=== PATIENT | male | born 1980 | race Caucasian/White ===

== ENCOUNTER 2018-02-07 09:57 | Emergency (ER) | payer MEDICAID ==
[~2018-02-07] VITALS: Ht 175.3 cm; Wt 102.3 kg
[~2018-02-07 09:57] MED LIST: ALPR-624 PO; CYCL-1 PO; HYDR1TAB PO; METO50TA16 PO; TEST200V16 IM
[2018-02-07 10:39] LABS: BASOPHILS % (AUTO) 0.4 % (0-1); EOSINOPHILS # (AUTO) 0.4 X10'3 (0-0.9); HEMATOCRIT 42.9 % (42.0-52.0); HEMOGLOBIN 14.1 g/dl (14.0-17.9); LYMPHOCYTES # (AUTO) 1.1 X10'3 (1.1-4.8); LYMPHOCYTES % (AUTO) 20.6 % (21-51); MEAN CORPUSCULAR HEMOGLOBIN 26.9 PG (27.0-31.0); MEAN CORPUSCULAR HGB CONC 32.8 % (33.0-36.5); MEAN CORPUSCULAR VOLUME 82.2 FL (78-98); MEAN PLATELET VOLUME 7.9 FL (7.4-10.4); MONOCYTES # (AUTO) 0.6 X10'3 (0-0.9); MONOCYTES % (AUTO) 11.3 % (2-12); NEUTROPHILS # (AUTO) 3.3 X10'3 (1.8-7.7); NEUTROPHILS % (AUTO) 59.7 % (42-75); PLATELET COUNT 218 X10'3 (140-440); RED BLOOD COUNT 5.22 X10'6 (4.70-6.10); WHITE BLOOD COUNT 5.4 X10'3 (4.5-11.0)
[2018-02-07 10:49] LABS: PARTIAL THROMBOPLASTIN TIME 27 SECONDS (22-32); PROTHROMBIN TIME 10.6 SECONDS (9.0-12.0)
[2018-02-07 10:59] LABS: ANION GAP 4 (8-16); BLOOD UREA NITROGEN 12 MG/DL (7-18); CHLORIDE 103 MMOL/L (99-107); CREATININE 1.23 MG/DL (0.60-1.10); GLUCOSE 96 MG/DL (70-104); POTASSIUM 3.9 MMOL/L (3.5-5.1); SODIUM 138 MMOL/L (135-145)
[2018-02-07 11:00] LABS: ALANINE AMINOTRANSFERASE 35 U/L (12-78); ALBUMIN 3.4 G/DL (3.4-5.0); ALKALINE PHOSPHATASE 45 IU/L (46-116); ASPARTATE AMINO TRANSFERASE 26 U/L (10-37); BILIRUBIN,TOTAL 0.3 MG/DL (0.1-1.0); BUN/CREATININE RATIO 9.8 (5.4-32.0); CALCIUM 8.3 MG/DL (8.5-10.1); TOTAL PROTEIN 6.9 G/DL (6.4-8.2); eGFR 66 ML/MIN
[2018-02-07 11:33] VITALS: BP 131/88
[2018-02-07] MEDS ORDERED: IBUP-1984 PO (11:39)
== END 2018-02-07 12:05 | disposition home or self-care (01) ==
LOC: ER 09:58
DX: M94.0 Chondrocostal junction syndrome [Tietze] (principal); I10 Essential (primary) hypertension; K21.9 Gastro-esophageal reflux disease without esophagitis; Z88.2 Allergy status to sulfonamides
CPT/HCPCS: 36415; 71046; 80053; 84484; 85025; 85610; 85730; 93005; 99285

== ENCOUNTER 2018-07-13 22:21 | Emergency (ER) | payer MEDICAID ==
[~2018-07-13] VITALS: Ht 177.8 cm; Wt 104.5 kg
[2018-07-13 23:05] VITALS: BP 130/78
[2018-07-13 23:14] LABS: BASOPHILS % (AUTO) 0.3 % (0-1); EOSINOPHILS # (AUTO) 0.4 X10'3 (0-0.9); EOSINOPHILS % (AUTO) 7.3 % (0-6); HEMATOCRIT 47.9 % (42.0-52.0); HEMOGLOBIN 15.6 g/dl (14.0-17.9); LYMPHOCYTES # (AUTO) 1.4 X10'3 (1.1-4.8); LYMPHOCYTES % (AUTO) 23.2 % (21-51); MEAN CORPUSCULAR HEMOGLOBIN 26.6 PG (27.0-31.0); MEAN CORPUSCULAR HGB CONC 32.7 % (33.0-36.5); MEAN CORPUSCULAR VOLUME 81.6 FL (78-98); MEAN PLATELET VOLUME 8.6 FL (7.4-10.4); MONOCYTES # (AUTO) 0.7 X10'3 (0-0.9); MONOCYTES % (AUTO) 12.4 % (2-12); NEUTROPHILS # (AUTO) 3.3 X10'3 (1.8-7.7); NEUTROPHILS % (AUTO) 56.8 % (42-75); PLATELET COUNT 213 X10'3 (140-440); RED BLOOD COUNT 5.87 X10'6 (4.70-6.10); RED CELL DISTRIBUTION WIDTH 15.2 % (11.5-14.5); WHITE BLOOD COUNT 5.9 X10'3 (4.5-11.0)
[2018-07-13 23:34] LABS: ALANINE AMINOTRANSFERASE 48 U/L (12-78); ALBUMIN 3.5 G/DL (3.4-5.0); ALKALINE PHOSPHATASE 51 IU/L (46-116); ANION GAP 8 (8-16); ASPARTATE AMINO TRANSFERASE 41 U/L (10-37); BILIRUBIN,TOTAL 0.3 MG/DL (0.1-1.0); BLOOD UREA NITROGEN 17 MG/DL (7-18); BUN/CREATININE RATIO 12.6 (5.4-32.0); CALCIUM 8.2 MG/DL (8.5-10.1); CHLORIDE 102 MMOL/L (99-107); CREATININE 1.35 MG/DL (0.60-1.10); GLUCOSE 91 MG/DL (70-104); LIPASE 197 U/L (73-393); POTASSIUM 3.8 MMOL/L (3.5-5.1); SODIUM 140 MMOL/L (135-145); TOTAL CARBON DIOXIDE 30.4 MMOL/L (24-32); TOTAL PROTEIN 7.1 G/DL (6.4-8.2); eGFR 59 ML/MIN
[2018-07-13 23:43] LABS: CLARITY,URINE CLEAR (Clear); COLOR,URINE YELLOW (Yellow); GLUCOSE, URINE NEGATIVE (Neg); KETONES,URINE NEGATIVE (Neg); LEUKOCYTE ESTERASE ,URINE NEGATIVE (Neg); NITRITES, URINE NEGATIVE (Neg); OCCULT BLOOD,URINE NEGATIVE (Neg); PH,URINE 5.5 (4.8-8.0); PROTEIN,URINE NEGATIVE (Neg); UA COLLECTION TYPE VOIDED; UROBILINOGEN,URINE 0.2 E.U/dL (0.2-1.0)
[2018-07-13] MEDS ORDERED: OMEP40CA37 PO (23:59)
== END 2018-07-14 00:14 | disposition home or self-care (01) ==
LOC: ER 22:22
DX: R10.9 Unspecified abdominal pain (principal); R14.0 Abdominal distension (gaseous); R11.10 Vomiting, unspecified; R53.83 Other fatigue
CPT/HCPCS: 36415; 80053; 81003; 83690; 85025; 99284

== ENCOUNTER 2018-08-01 15:28 | Emergency (ER) | payer MEDICAID ==
[~2018-08-01] VITALS: Ht 177.8 cm; Wt 102.0 kg
[~2018-08-01 15:28] MED LIST changes: +OMEP40CA37 PO
[2018-08-01 16:02] LABS: BASOPHILS % (AUTO) 0.3 % (0-1); EOSINOPHILS # (AUTO) 0.3 X10'3 (0-0.9); HEMATOCRIT 49.9 % (42.0-52.0); LYMPHOCYTES # (AUTO) 1.1 X10'3 (1.1-4.8); LYMPHOCYTES % (AUTO) 22.7 % (21-51); MEAN CORPUSCULAR HEMOGLOBIN 26.1 PG (27.0-31.0); MEAN CORPUSCULAR HGB CONC 32.1 % (33.0-36.5); MEAN CORPUSCULAR VOLUME 81.3 FL (78-98); MEAN PLATELET VOLUME 8.1 FL (7.4-10.4); MONOCYTES # (AUTO) 0.7 X10'3 (0-0.9); MONOCYTES % (AUTO) 14.3 % (2-12); NEUTROPHILS # (AUTO) 2.8 X10'3 (1.8-7.7); NEUTROPHILS % (AUTO) 55.7 % (42-75); PLATELET COUNT 222 X10'3 (140-440); RED BLOOD COUNT 6.14 X10'6 (4.70-6.10); RED CELL DISTRIBUTION WIDTH 15.4 % (11.5-14.5)
[2018-08-01] MEDS ORDERED: ondansetron 4mg rapidly disintigrating tab PO ONE (16:15)
[2018-08-01 16:17] LABS: ALANINE AMINOTRANSFERASE 47 U/L (12-78); ALBUMIN 3.8 G/DL (3.4-5.0); ALKALINE PHOSPHATASE 52 IU/L (46-116); ANION GAP 7 (8-16); ASPARTATE AMINO TRANSFERASE 43 U/L (10-37); BILIRUBIN,TOTAL 0.5 MG/DL (0.1-1.0); BLOOD UREA NITROGEN 14 MG/DL (7-18); BUN/CREATININE RATIO 10.4 (5.4-32.0); CALCIUM 8.7 MG/DL (8.5-10.1); CHLORIDE 101 MMOL/L (99-107); CREATININE 1.34 MG/DL (0.60-1.10); GLUCOSE 86 MG/DL (70-104); LIPASE 192 U/L (73-393); POTASSIUM 4.3 MMOL/L (3.5-5.1); SODIUM 139 MMOL/L (135-145); TOTAL CARBON DIOXIDE 31.1 MMOL/L (24-32); TOTAL PROTEIN 7.7 G/DL (6.4-8.2); eGFR 60 ML/MIN
[2018-08-01] MEDS ORDERED: PYRA144O PO (16:27)
[2018-08-01] MEDS ORDERED: PRAZ600T3 PO (16:27)
[2018-08-01] MEDS ORDERED: ONDA8TAB9 PO (16:29)
[2018-08-01 16:31] LABS: INR 1.1 INR
[2018-08-01 16:42] VITALS: BP 129/77
== END 2018-08-01 16:44 | disposition home or self-care (01) ==
LOC: ER 15:29
DX: B82.9 Intestinal parasitism, unspecified (principal); I10 Essential (primary) hypertension; K21.9 Gastro-esophageal reflux disease without esophagitis; Z98.890 Other specified postprocedural states; Z88.2 Allergy status to sulfonamides; Z88.1 Allergy status to other antibiotic agents; Z79.899 Other long term (current) drug therapy
CPT/HCPCS: 36415; 80053; 83690; 85025; 85610; 99284

== ENCOUNTER 2019-04-16 01:02 | Emergency (ER) | payer MEDICAID ==
[~2019-04-16] VITALS: Ht 175.3 cm; Wt 104.0 kg
[~2019-04-16 01:02] MED LIST changes: -OMEP40CA37 PO; +ONDA8TAB9 PO; +PRAZ600T3 PO; +PYRA144O PO
[2019-04-16 02:10] VITALS: BP 145/76
--- NOTE | 2019-04-16 03:34 | NUR ---
Pt not in room. Per Registration, pt signed all relevant documents prior to leaving. EDMD and CRN notified pt left prior to being seen.
== END 2019-04-16 03:37 | disposition left against medical advice (07) ==
LOC: ER 01:03
DX: K08.89 Other specified disorders of teeth and supporting structures (principal); Z53.21 Procedure and treatment not carried out due to patient leaving prior to being seen by health care provider; Z79.899 Other long term (current) drug therapy

== ENCOUNTER 2019-04-16 05:24 | Emergency (ER) | payer MEDICAID ==
[~2019-04-16] VITALS: Ht 175.3 cm; Wt 105.0 kg
[2019-04-16 05:28] VITALS: BP 158/99
[2019-04-16] MEDS ORDERED: ondansetron 4mg rapidly disintigrating tab PO ONE (06:25)
[2019-04-16] MEDS ORDERED: LIDOcaine Viscous 15ml cup PO ONE (06:35)
== END 2019-04-16 06:59 | disposition home or self-care (01) ==
LOC: ER 05:25
DX: K08.89 Other specified disorders of teeth and supporting structures (principal); I10 Essential (primary) hypertension; K21.9 Gastro-esophageal reflux disease without esophagitis; F10.99 Alcohol use, unspecified with unspecified alcohol-induced disorder; Z98.890 Other specified postprocedural states; Z88.2 Allergy status to sulfonamides; Z88.8 Allergy status to other drugs, medicaments and biological substances; Z79.899 Other long term (current) drug therapy; Y90.9 Presence of alcohol in blood, level not specified
CPT/HCPCS: 99283; J2405

== ENCOUNTER 2020-04-21 21:47 | Emergency (ER) | payer MEDICAID ==
[~2020-04-21] VITALS: Ht 175.3 cm; Wt 102.0 kg
--- NOTE | 2020-04-21 21:58 | NUR ---
RANJAN WALKER [phone] ALY
[2020-04-21] MEDS ORDERED: aspirin 81mg tab.chew PO ONE (22:05)
[2020-04-21 22:45] LABS: BASOPHILS % (AUTO) 0.6 % (0-1); EOSINOPHILS # (AUTO) 0.4 X10'3 (0-0.9); EOSINOPHILS % (AUTO) 8.1 % (0-6); HEMOGLOBIN 17.3 g/dl (14.0-17.9); LYMPHOCYTES # (AUTO) 1.2 X10'3 (1.1-4.8); MEAN CORPUSCULAR HEMOGLOBIN 31.4 PG (27.0-31.0); MEAN CORPUSCULAR VOLUME 92.3 FL (78-98); MONOCYTES # (AUTO) 0.6 X10'3 (0-0.9); NEUTROPHILS % (AUTO) 56.3 % (42-75); PLATELET COUNT 182 X10'3 (140-440); RED BLOOD COUNT 5.53 X10'6 (4.70-6.10); RED CELL DISTRIBUTION WIDTH 14.5 % (11.5-14.5); WHITE BLOOD COUNT 5.3 X10'3 (4.5-11.0)
[2020-04-21 22:49] LABS: D-DIMER 0.29 MG/L FEU (0-0.50)
[2020-04-21 22:52] LABS: ALANINE AMINOTRANSFERASE 34 U/L (12-78); ALBUMIN 3.5 G/DL (3.4-5.0); ALKALINE PHOSPHATASE 42 IU/L (46-116); ANION GAP 5 (8-16); ASPARTATE AMINO TRANSFERASE 31 U/L (10-37); BILIRUBIN,TOTAL 0.3 MG/DL (0.1-1.0); BLOOD UREA NITROGEN 17 MG/DL (7-18); BUN/CREATININE RATIO 13.5 (5.4-32.0); CALCIUM 8.3 MG/DL (8.5-10.1); CHLORIDE 105 MMOL/L (99-107); CREATININE 1.26 MG/DL (0.60-1.10); GLUCOSE 117 MG/DL (70-104); POTASSIUM 3.8 MMOL/L (3.5-5.1); SODIUM 138 MMOL/L (135-145); TOTAL CARBON DIOXIDE 28.2 MMOL/L (24-32); eGFR 64 ML/MIN
[2020-04-21 22:59] LABS: MAGNESIUM 1.6 MG/DL (1.5-2.4)
[2020-04-21 23:00] LABS: CLARITY,URINE CLEAR (Clear); COLOR,URINE YELLOW (Yellow); GLUCOSE, URINE NEGATIVE (Neg); KETONES,URINE NEGATIVE (Neg); LEUKOCYTE ESTERASE ,URINE NEGATIVE (Neg); NITRITES, URINE NEGATIVE (Neg); OCCULT BLOOD,URINE NEGATIVE (Neg); PROTEIN,URINE NEGATIVE (Neg); UROBILINOGEN,URINE 0.2 E.U/dL (0.2-1.0)
[2020-04-21 23:03] LABS: UA COLLECTION TYPE VOIDED
[2020-04-22 00:04] VITALS: BP 127/73
== END 2020-04-22 00:15 | disposition home or self-care (01) ==
LOC: ER 21:48
DX: I10 Essential (primary) hypertension (principal); R07.89 Other chest pain; H53.8 Other visual disturbances; R20.0 Anesthesia of skin; K21.9 Gastro-esophageal reflux disease without esophagitis; Z98.890 Other specified postprocedural states; Z72.89 Other problems related to lifestyle; Z88.2 Allergy status to sulfonamides; Z88.1 Allergy status to other antibiotic agents; Z88.8 Allergy status to other drugs, medicaments and biological substances; Z79.899 Other long term (current) drug therapy
CPT/HCPCS: 36415; 71045; 80053; 81003; 83735; 83880; 84484; 85025; 85379; 93005; 99285

== ENCOUNTER 2020-07-25 17:25 | Emergency (ER) | payer MEDICAID ==
[~2020-07-25] VITALS: Ht 175.3 cm; Wt 100.8 kg
[2020-07-25 17:31] VITALS: BP 133/68
[2020-07-25] MEDS ORDERED: CEPH250T PO (17:45)
[2020-07-25] MEDS ORDERED: DOXY100C76 PO (17:45)
== END 2020-07-25 18:01 | disposition home or self-care (01) ==
LOC: ER 17:26
DX: L03.113 Cellulitis of right upper limb (principal); I10 Essential (primary) hypertension; K21.9 Gastro-esophageal reflux disease without esophagitis; Z98.890 Other specified postprocedural states; Z72.89 Other problems related to lifestyle; Z88.2 Allergy status to sulfonamides; Z88.1 Allergy status to other antibiotic agents; Z88.8 Allergy status to other drugs, medicaments and biological substances; Z79.2 Long term (current) use of antibiotics; Z79.899 Other long term (current) drug therapy
CPT/HCPCS: 99283

== ENCOUNTER 2020-11-04 17:21 | Emergency (ER) | payer MEDICAID ==
[~2020-11-04] VITALS: Ht 175.3 cm; Wt 100.0 kg
[2020-11-04 17:29] VITALS: BP 145/91
--- NOTE | 2020-11-04 17:55 | NUR ---
Went to update pt on plan of care. Pt no longer seated in ambulance bay cubicle. PA made aware.
--- NOTE | 2020-11-04 18:02 | NUR ---
OUT TO ROOM PT TO BED 13 FROM [facility] PT NOT THERE. TENNILLE SUTTON NOTIFIED
== END 2020-11-04 19:12 | disposition left against medical advice (07) ==
LOC: ER 17:21
DX: B34.9 Viral infection, unspecified (principal); I10 Essential (primary) hypertension; K21.9 Gastro-esophageal reflux disease without esophagitis; Z79.899 Other long term (current) drug therapy; Z88.2 Allergy status to sulfonamides; Z88.8 Allergy status to other drugs, medicaments and biological substances
CPT/HCPCS: 99281

== ENCOUNTER 2021-05-11 00:02 | Emergency (ER) | payer MEDICAID ==
[~2021-05-11] VITALS: Ht 175.3 cm; Wt 97.3 kg
[2021-05-11 00:16] VITALS: BP 159/69
== END 2021-05-11 02:50 | disposition left against medical advice (07) ==
LOC: ER 00:03
DX: J02.9 Acute pharyngitis, unspecified (principal); Z20.822 Contact with and (suspected) exposure to COVID-19; R05 Cough; Z53.21 Procedure and treatment not carried out due to patient leaving prior to being seen by health care provider
CPT/HCPCS: 87635; C9803

== ENCOUNTER 2021-05-16 13:11 | Emergency (ER) | payer MEDICAID ==
[~2021-05-16] VITALS: Ht 175.3 cm; Wt 95.0 kg
[2021-05-16 13:35] VITALS: BP 136/88
[2021-05-16] MEDS ORDERED: DEC4T PO (14:27)
[2021-05-16] MEDS ORDERED: AZIT250T2 PO (14:27)
== END 2021-05-16 15:20 | disposition home or self-care (01) ==
LOC: ER 13:11
DX: U07.1 COVID-19 (principal); R53.83 Other fatigue; J20.9 Acute bronchitis, unspecified; R50.9 Fever, unspecified; R05 Cough; R53.1 Weakness; I10 Essential (primary) hypertension; K21.9 Gastro-esophageal reflux disease without esophagitis; Z98.890 Other specified postprocedural states; Z72.89 Other problems related to lifestyle; Z88.2 Allergy status to sulfonamides; Z88.1 Allergy status to other antibiotic agents; Z88.8 Allergy status to other drugs, medicaments and biological substances; Z79.2 Long term (current) use of antibiotics; Z79.899 Other long term (current) drug therapy
CPT/HCPCS: 36415; 71045; 99284; U0003; U0005

== ENCOUNTER 2021-08-12 17:13 | Emergency (ER) | payer MEDICAID ==
[2021-08-13] MEDS ORDERED: AZIT-83 PO (01:20)
== END 2021-08-12 19:44 | disposition left against medical advice (07) ==
LOC: ER 17:13
DX: Z53.21 Procedure and treatment not carried out due to patient leaving prior to being seen by health care provider (principal)

== ENCOUNTER 2021-08-12 23:08 | Emergency (ER) | payer MEDICAID ==
[~2021-08-12] VITALS: Ht 175.3 cm; Wt 95.5 kg
[2021-08-12 23:29] VITALS: BP 148/82
--- NOTE | 2021-08-13 01:14 | NUR ---
refused covid swab
[2021-08-13] MEDS ORDERED: AZIT-83 PO (01:20)
== END 2021-08-13 02:05 | disposition home or self-care (01) ==
LOC: ER 23:09
DX: J20.9 Acute bronchitis, unspecified (principal); R05.9 Cough, unspecified; R07.89 Other chest pain; R06.02 Shortness of breath; I10 Essential (primary) hypertension; K21.9 Gastro-esophageal reflux disease without esophagitis; Z98.890 Other specified postprocedural states; Z72.89 Other problems related to lifestyle; Z88.2 Allergy status to sulfonamides; Z88.1 Allergy status to other antibiotic agents; Z88.8 Allergy status to other drugs, medicaments and biological substances; Z79.2 Long term (current) use of antibiotics; Z79.899 Other long term (current) drug therapy
CPT/HCPCS: 99283

== ENCOUNTER 2021-12-15 02:48 | Emergency (ER) | payer MEDICAID ==
[~2021-12-15] VITALS: Ht 175.3 cm; Wt 95.5 kg
[2021-12-15 03:39] LABS: BASOPHILS % (AUTO) 0.5 % (0-1); EOSINOPHILS # (AUTO) 0.4 X10'3 (0-0.9); EOSINOPHILS % (AUTO) 6.5 % (0-6); HEMATOCRIT 50.9 % (42.0-52.0); HEMOGLOBIN 17.3 g/dl (14.0-17.9); LYMPHOCYTES # (AUTO) 1.9 X10'3 (1.1-4.8); LYMPHOCYTES % (AUTO) 28.2 % (21-51); MEAN CORPUSCULAR HEMOGLOBIN 30.7 PG (27.0-31.0); MEAN CORPUSCULAR HGB CONC 33.9 g/dL (33.0-36.5); MEAN CORPUSCULAR VOLUME 90.5 FL (78-98); MONOCYTES # (AUTO) 0.8 X10'3 (0-0.9); MONOCYTES % (AUTO) 11.9 % (2-12); NEUTROPHILS # (AUTO) 3.5 X10'3 (1.8-7.7); NEUTROPHILS % (AUTO) 52.9 % (42-75); PLATELET COUNT 204 X10'3 (140-440); RED BLOOD COUNT 5.63 X10'6 (4.70-6.10); RED CELL DISTRIBUTION WIDTH 14.4 % (11.5-14.5); WHITE BLOOD COUNT 6.6 X10'3 (4.5-11.0)
[2021-12-15 03:53] LABS: ALANINE AMINOTRANSFERASE 33 U/L (12-78); ALBUMIN 3.8 G/DL (3.4-5.0); ALKALINE PHOSPHATASE 46 IU/L (46-116); ANION GAP 1 (8-16); ASPARTATE AMINO TRANSFERASE 40 U/L (10-37); BILIRUBIN,TOTAL 0.4 MG/DL (0.1-1.0); BLOOD UREA NITROGEN 17 MG/DL (7-18); BUN/CREATININE RATIO 14.8 (5.4-32.0); CALCIUM 8.4 MG/DL (8.5-10.1); CHLORIDE 105 MMOL/L (99-107); CREATININE 1.15 MG/DL (0.60-1.10); GLUCOSE 88 MG/DL (70-104); POTASSIUM 3.8 MMOL/L (3.5-5.1); SODIUM 138 MMOL/L (135-145); TOTAL PROTEIN 7.5 G/DL (6.4-8.2); eGFR 70 ML/MIN
[2021-12-15 09:00] VITALS: BP 116/74
== END 2021-12-15 09:00 | disposition home or self-care (01) ==
LOC: ER 02:49
DX: R07.9 Chest pain, unspecified (principal); R00.2 Palpitations; I11.9 Hypertensive heart disease without heart failure; K21.9 Gastro-esophageal reflux disease without esophagitis; Z88.2 Allergy status to sulfonamides; Z88.8 Allergy status to other drugs, medicaments and biological substances; Z79.899 Other long term (current) drug therapy
CPT/HCPCS: 36415; 71045; 80053; 83880; 84484; 85025; 93005; 99285

== ENCOUNTER 2024-01-04 17:17 | Emergency (ER) | payer MEDICAID ==
[~2024-01-04] VITALS: Ht 175.3 cm; Wt 101.1 kg
[2024-01-04 17:34] VITALS: BP 142/85; PULSE 60; RESP 16; TEMP 98.2; O2SAT 96
== END 2024-01-04 18:49 | disposition home or self-care (01) ==
LOC: ER 17:18
DX: S43.005A Unspecified dislocation of left shoulder joint, initial encounter (principal); S46.912A Strain of unspecified muscle, fascia and tendon at shoulder and upper arm level, left arm, initial encounter; M25.512 Pain in left shoulder; I10 Essential (primary) hypertension; Z72.89 Other problems related to lifestyle; Z98.890 Other specified postprocedural states; Z88.2 Allergy status to sulfonamides; Z88.8 Allergy status to other drugs, medicaments and biological substances; Z79.899 Other long term (current) drug therapy; W19.XXXA Unspecified fall, initial encounter; Y93.89 Activity, other specified; Y92.89 Other specified places as the place of occurrence of the external cause; Y99.8 Other external cause status
CPT/HCPCS: 73030; 99283; A4565

== ENCOUNTER 2025-01-13 14:41 | Emergency (ER) | payer MEDICAID ==
[~2025-01-13] VITALS: Ht 175.3 cm; Wt 101.8 kg
[2025-01-13 14:50] VITALS: BP 116/69; PULSE 64; RESP 18; TEMP 97.9; O2SAT 97
[2025-01-13 15:31] LABS: BASOPHILS % (AUTO) 0.7 % (0-1); EOSINOPHILS # (AUTO) 0.3 X10'3 (0-0.9); EOSINOPHILS % (AUTO) 6.8 % (0-6); HEMOGLOBIN 14.5 g/dl (14.0-17.9); LYMPHOCYTES # (AUTO) 1.2 X10'3 (1.1-4.8); LYMPHOCYTES % (AUTO) 27.5 % (21-51); MEAN CORPUSCULAR HEMOGLOBIN 25.5 PG (27.0-31.0); MEAN CORPUSCULAR VOLUME 77.4 FL (78-98); MEAN PLATELET VOLUME 7.8 FL (7.4-10.4); MONOCYTES # (AUTO) 0.6 X10'3 (0-0.9); MONOCYTES % (AUTO) 13.7 % (2-12); NEUTROPHILS # (AUTO) 2.3 X10'3 (1.8-7.7); NEUTROPHILS % (AUTO) 51.3 % (42-75); PLATELET COUNT 236 X10'3 (140-440); RED BLOOD COUNT 5.68 X10'6 (4.70-6.10); RED CELL DISTRIBUTION WIDTH 16.3 % (11.5-14.5); WHITE BLOOD COUNT 4.5 X10'3 (4.5-11.0)
[2025-01-13 15:57] LABS: ALANINE AMINOTRANSFERASE 36 U/L (12-78); ALBUMIN 3.4 G/DL (3.4-5.0); ALBUMIN/GLOBULIN RATIO 0.9 (1.1-1.5); ALKALINE PHOSPHATASE 47 IU/L (46-116); ANION GAP 7 (8-16); ASPARTATE AMINO TRANSFERASE 37 U/L (10-37); BILIRUBIN,TOTAL 0.6 MG/DL (0.1-1.0); BLOOD UREA NITROGEN 21 MG/DL (7-18); BUN/CREATININE RATIO 19.3 (10.0-20.0); CALCIUM 8.2 MG/DL (8.5-10.1); CHLORIDE 104 MMOL/L (99-107); CREATININE 1.09 MG/DL (0.60-1.10); GLUCOSE 97 MG/DL (70-104); POTASSIUM 4.2 MMOL/L (3.5-5.1); SODIUM 138 MMOL/L (135-145); TOTAL CARBON DIOXIDE 26.8 MMOL/L (24-32); eCRCL 86 ML/MIN; eGFR 73 ML/MIN
[2025-01-13 15:58] LABS: PRO BRAIN NATRIURETIC PEPTIDE < 30 PG/ML (0-125)
== END 2025-01-13 16:13 | disposition home or self-care (01) ==
LOC: ER 14:42
DX: I82.890 Acute embolism and thrombosis of other specified veins (principal); M79.642 Pain in left hand; M79.641 Pain in right hand; I10 Essential (primary) hypertension; K21.9 Gastro-esophageal reflux disease without esophagitis; Z88.2 Allergy status to sulfonamides; Z88.8 Allergy status to other drugs, medicaments and biological substances; Z79.899 Other long term (current) drug therapy; Z72.89 Other problems related to lifestyle
CPT/HCPCS: 36415; 71045; 80053; 83880; 84484; 85025; 99284

== ENCOUNTER 2025-05-12 13:40 | Emergency (ER) | payer MEDICAID ==
[~2025-05-12] VITALS: Ht 175.3 cm; Wt 96.4 kg
--- NOTE | 2025-05-12 13:50 | ELECTROCARDIOGRAPH REPORT ---
[facility] Test Date: 2025-05-12 Test Time: 13:48:32 Pat Name: RANJAN GUNN Department: EMERGENCY ROOM Room: Gender: M Consignee: YAZMIN : 1980 Requested By: OVI HOPPER Order Number: [id number] Reading MD: Measurements Intervals [place] Rate: 56 P: 25 NV: 171 QRS: 4 QRSD: 110 T: 33 QT: 413 QTc: 399 Interpretive Statements Sinus bradycardia RSR' in V1 or V2, right VCD or RVH ST elev, probable normal early repol pattern Please click the below link to view image of tracing.
[2025-05-12 13:52] VITALS: BP 147/84; PULSE 58; RESP 16; TEMP 98.5; O2SAT 100
--- NOTE | 2025-05-12 14:15 | RADIOLOGY REPORT ---
DI CHEST,SINGLE VIEW, HISTORY: CP COMPARISON: DI CHEST,SINGLE VIEW on DOS: 01/13/25, CHEST,SINGLE VIEW on DOS: 12/15/21, CHEST,SINGLE VIE W on DOS: 05/16/21 DI CHEST,SINGLE VIEW on DOS: 01/13/25, CHEST,SINGLE VIEW on DOS: 12/15/21, CHEST,SINGLE VIEW on DOS: TECHNICAL DATA: 1 view of the chest was obtained. FINDINGS: Lines and tubes: None Cardiomediastinal silhouette: normal Pulmonary vasculature: normal Lung expansion: normal Lung airspace: normal Lung interstitium: normal Pleura: normal Pneumothorax: no Bones: Unremarkable Other: no IMPRESSION: No acute intrathoracic abnormality.
[2025-05-12 14:18] LABS: MEAN PLATELET VOLUME 7.7 FL (7.4-10.4); RED CELL DISTRIBUTION WIDTH 17.2 % (11.5-14.5)
[2025-05-12 14:35] LABS: CREATININE 1.19 MG/DL (0.60-1.10); PRO BRAIN NATRIURETIC PEPTIDE < 30 PG/ML (0-125); TOTAL CARBON DIOXIDE 30.7 MMOL/L (24-32); eCRCL 79 ML/MIN; eGFR 66 ML/MIN
--- NOTE | 2025-05-12 15:40 | Physician Documentation ---
History of Present Illness ~ Chief Complaint: Chest Pain Stated Complaint: SOB/CHEST PAIN Time Seen by MD: 15:33 Primary Medical Doctor: [facility] HPI This is a 44-year-old gentleman that presents to the emergency department for evaluation of chest pain chest tightness and intermittent shortness of breath. Patient reports that he has had multiple episodes of this over the last months to years and has been seen and evaluated multiple times for this. Reports that he feels like he might have anxiety but sometimes gets worried and he perseverates on health issues. Reports that his friend recently from a blood clot which he believes has heightened his concern and anxiety about developing blood clots. Patient reports that he has a history of tachycardia that he underwent an ablation for and now takes beta-blockers. Patient reports that he takes testosterone replacement. Patient takes Xanax p.r.n. for anxiety. Patient reports that he is very active and tries to be very health conscious. No other significant past medical history reported at this time. Medication Reconciliation Allergies: Coded Allergies: Sulfa (Sulfonamide Antibiotics) (Verified Allergy, Intermediate, 01/13/25) sulfamethoxazole (Verified Allergy, Unknown, 01/13/25) trimethoprim (Verified Allergy, Unknown, 01/13/25) Scheduled Alprazolam* (Xanax*), 1 MG PO QID, (Reported) Hydrocodone/Acetaminophen (Vicodin 5-500 Tablet), 2 TAB PO PRN, (Reported) Metoprolol Tartrate (Metoprolol Tartrate), 50 MG PO BID, (Reported) Praziquantel (Praziquantel), 4 TAB PO ONCE Pyrantel Pamoate (Faraz Pinworm), 20 ML PO ONCE Testosterone Cypionate (Testosterone Cypionate), 200 MG IM Q7D, (Reported) Scheduled PRN Cyclobenzaprine* (Cyclobenzaprine*), 1 TABLET PO HS PRN for muscle spasms Ondansetron (Zofran Odt), 8 MG PO QID PRN for nausea/vomiting Past Medical History Past Medical History: Arrhythmia, Hypertension, GERD Past Surgical History: other Other Past Surgical History: ablation Other Past Family History: NONCONTRIBUTORY Alcohol Use: Occasionally Drug Use: none Lives with: Spouse, Family Lives In: Home Occupation: employed Review of Systems ROS As stated above in the HPI, otherwise all systems are reviewed and negative. Physical Exam Vital Signs: Temperature: 98.5, Source: Temporal, Heart Rate: 58, Respiratory Rate: 16, BP: 147/84, Pulse Oximetry: 100, Weight: 96.360 Physical Exam VITALS: Reviewed and as above. GENERAL: Alert, no apparent distress. HEENT: Normocephalic, atraumatic, PERRL, EOMI, dry mucosa, no erythema RESPIRATORY: Lungs clear, normal breath sounds, no respiratory distress. CHEST: No accessory muscle use, no retractions CV: Regular rate, rhythm, no edema, no murmur, No: JVD GI: Soft, non-tender, bowels sounds present, no rebound, guarding, or rigidity BACK: No CVA tenderness, or swelling MUSCULOSKELETAL No deformities, no edema SKIN: Warm and dry, no rash NEURO: Oriented x4, No motor or sensory deficit PSYCH: Normal mood and affect, no agitation Progress Results/Orders Results/Orders Vital Signs 05/12/25 13:52 Temp 98.5 Pulse 58 Resp 16 B/P (MAP) 147/84 Pulse Ox 100 Laboratory Tests Test 05/12/25 14:03 White Blood Count 4.7 Red Blood Count 6.31 H Hemoglobin 16.1 Hematocrit 49.4 Mean Corpuscular Volume 78.3 Mean Corpuscular Hemoglobin 25.5 L Mean Corpuscular Hemoglobin Concent 32.6 L Red Cell Distribution Width 17.2 H Platelet Count 190 Mean Platelet Volume 7.7 Neutrophils (%) (Auto) 48.8 Lymphocytes (%) (Auto) 31.1 Monocytes (%) (Auto) 12.3 H Eosinophils (%) (Auto) 7.1 H Basophils (%) (Auto) 0.7 Neutrophils # (Auto) 2.3 Lymphocytes # (Auto) 1.5 Monocytes # (Auto) 0.6 Eosinophils # (Auto) 0.3 Basophils # (Auto) 0.0 CBC Comment Sodium Level 139 Potassium Level 4.3 Chloride Level 103 Carbon Dioxide Level 30.7 Anion Gap 5 L Blood Urea Nitrogen 18 Creatinine 1.19 H Estimated GFR/1.73 m2 66 BUN/Creatinine Ratio 15.1 Glucose Level 108 H Calcium Level 8.8 Troponin I High Sensitivity 9 Pro-B-Type Natriuretic Peptide < 30 Albumin 3.8 Chemistry Comments Medical Decision Making Findings This patient presents with symptoms consistent with acute anxiety reaction / panic attack. Low suspicion for acute cardiopulmonary process including ACS, PE, or thoracic aortic dissection. Denies any ingestions or any other medical complaints. No evidence of alcohol withdrawal symptoms. Given history and physical presentation not consistent with overt toxidrome, ingestion. Presentation not consistent with a medical emergency at this time. No acute indication for psychiatric consultation (without SI/HI, AH/VH). Cautious return precautions discussed with full understanding. Patient will follow up with his primary care provider. Patient will return to the emergency department if he has any worsening of his current symptoms or any additional concerning symptoms present that we discussed here today i.e. chest pain chest tightness shortness of breath lightheaded dizziness nausea near syncopal episodes or any other concerning symptoms. Differential Dx:Considerations: Include: angina, aortic dissection, chest wall pain, cholelithiasis, CHF, costochondritis, esophageal reflux/spasm, gastritis, herpes zoster, myocardial infarction, pericarditis, pleuritis, pancreatitis, pneumonia, pneumothorax, pulmonary embolus, other Departure Disposition: HOME / SELF CARE / HOMELESS Impression: Primary Impression: Chest pain Additional Impression: Anxiety Condition: Stable Discharge Instructions: Generalized Anxiety Disorder, Adult Additional Instructions: This patient presents with symptoms consistent with acute anxiety reaction / panic attack. Low suspicion for acute cardiopulmonary process including ACS, PE, or thoracic aortic dissection. Denies any ingestions or any other medical complaints. No evidence of alcohol withdrawal symptoms. Given history and physical presentation not consistent with overt toxidrome, ingestion. Presentation not consistent with a medical emergency at this time. No acute indication for psychiatric consultation (without SI/HI, AH/VH). Cautious return precautions discussed with full understanding. Patient will follow up with his primary care provider. Patient will return to the emergency department if he has any worsening of his current symptoms or any additional concerning symptoms present that we discussed here today i.e. chest pain chest tightness shortness of breath lightheaded dizziness nausea near syncopal episodes or any other concerning symptoms. Referrals: NO PRIMARY CARE PROVIDER (PCP) Education Educated: Patient Educated regarding: diagnosis, treatment, need for follow up Signature Scribe Signature: A Attestation: Scribed for Emergency,Department by GIOVANI Torres . 05/12/25 15:42 JEFFERY SOTO May 12, 2025 15:40
== END 2025-05-12 16:16 | disposition home or self-care (01) ==
LOC: ER 13:41
DX: R07.89 Other chest pain (principal); F41.9 Anxiety disorder, unspecified; I10 Essential (primary) hypertension; K21.9 Gastro-esophageal reflux disease without esophagitis; Z88.2 Allergy status to sulfonamides; Z88.8 Allergy status to other drugs, medicaments and biological substances; Z79.899 Other long term (current) drug therapy; Z72.89 Other problems related to lifestyle
CPT/HCPCS: 36415; 71045; 80048; 83880; 84484; 85025; 93005; 99285